=== PATIENT | male | born 1975 | race American Indian/Alaskan Native ===

== ENCOUNTER 2016-09-19 17:50 | Emergency (ER) | payer OTHER ==
[2016-09-19 21:17] VITALS: BP 133/72
--- NOTE | 2016-09-19 21:21 | Emergency Department Report ---
HPI - General Chief Complaint: Skin/Abscess/Foreign Body Time Seen by Provider: 09/19/16 21:00 - HPI HPI: This is a 41-year-old Afro-[place] male who presents to the emergency department with complaint of concern for a retained foreign body and/or sex toy in his rectum. Patient says he was experimenting with a toy yesterday afternoon when part of it broke off. He denies any pain in the abdomen or rectum, rectal bleeding or any physical complaints. However he is convinced that there is still part of the toy retained in his rectum as "it is gone" and cannot be seen in his home. He denies any past medical history. He has not taken anything for symptoms prior to presentation. He did not come in until today because he thought that it would just come out on its own. His only surgical history is an appendectomy a few years ago. ED Past Medical Hx - Past Medical History Previous Medical History?: No - Surgical History Hx Appendectomy: Yes - Medications Home Medications: Home Medications Medication Instructions Recorded Confirmed Last Taken Type No Known Home Medications [No 09/19/16 09/19/16 Unknown History Reported Home Medications] ED Review of Systems ROS: Stated complaint: RECTAL PAIN Other details as noted in HPI Comment: All other systems reviewed and negative Constitutional: denies: chills, fever Eyes: denies: eye pain, eye discharge, vision change ENT: denies: ear pain, throat pain Respiratory: denies: cough, shortness of breath, wheezing Cardiovascular: denies: chest pain, palpitations Gastrointestinal: denies: abdominal pain, nausea, diarrhea Genitourinary: denies: urgency, dysuria Musculoskeletal: denies: back pain, joint swelling, arthralgia Skin: denies: rash, lesions Neurological: denies: headache, weakness, paresthesias Physical Exam - Physical Exam Vital Signs: Vital Signs 09/19/16 09/19/16 18:56 21:17 Temperature 98.6 F 98.5 F Pulse Rate 61 57 L Respiratory 17 24 Rate Blood Pressure 141/66 Blood Pressure 133/72 [Right] O2 Sat by Pulse 99 98 Oximetry Physical Exam: GENERAL: The patient is well-developed well-nourished. HEENT: Normocephalic. Atraumatic. Extraocular motions are intact. Patient has moist mucous membranes. Pupils equal reactive to light bilaterally. NECK: Supple. Trachea is midline. CHEST/LUNGS: Clear to auscultation. There is no respiratory distress noted. HEART/CARDIOVASCULAR: Regular. There is no tachycardia. There is no gallop rub or murmur. ABDOMEN: Abdomen is soft, nontender. Patient has normal bowel sounds. There is no abdominal distention. SKIN: There is no rash. There is no edema. There is no diaphoresis. NEURO: The patient is awake, alert, and oriented. The patient is cooperative. The patient has no focal neurologic deficits. The patient has normal speech and gait. MUSCULOSKELETAL: There is no tenderness or deformity. There is no limitation range of motion. There is no evidence of acute injury. RECTAL: No lesions seen. No foreign body seen. ED Course Vital Signs 09/19/16 09/19/16 18:56 21:17 Temperature 98.6 F 98.5 F Pulse Rate 61 57 L Respiratory 17 24 Rate Blood Pressure 141/66 Blood Pressure 133/72 [Right] O2 Sat by Pulse 99 98 Oximetry ED Medical Decision Making - Radiology Data Radiology results: report reviewed, image reviewed interpreted by me: Abdominal x-ray shows some surgical clips in the lower abdomen and pelvis but otherwise no radiopaque foreign body seen. No obstruction. CT of the abdomen and pelvis without contrast does not show any radiopaque foreign body or any other acute process. - Medical Decision Making 41-year-old male presents with the concern that he has a foreign body or a sex toy in his rectum and/or intestines. On visual examination there is nothing seen in the rectal vault and no lesions and no bleeding. Patient has no complaints of rectal or abdominal pain. Abdominal x-ray did not show any foreign body. Patient was so adamant that there was something in there that a CT was done without contrast. CT also did not show any radiopaque foreign body. Patient will be discharged home to follow-up with his primary care doctor. Critical Care Time: No Critical care attestation.: If time is entered above; I have spent that time in minutes in the direct care of this critically ill patient, excluding procedure time. ED Disposition Clinical Impression: Sensation of foreign body Disposition: DISCHARGED TO HOME OR SELFCARE Is pt being admited?: No Condition: Good Additional Instructions: You were seen today for concern of a possible foreign body in the rectum and/or colon. Nothing was found on abdominal or CT imaging. Please follow-up with your primary care doctor and return to the ER with any acute distress. Referrals: PRIMARY CARE, [Primary Care Provider] - 3-5 Days Time of Disposition: 22:56
--- NOTE | 2016-09-19 22:29 | Cat Scan Report ---
FINAL REPORT EXAM: CT ABDOMEN PELVIS WO CON HISTORY: retained foreign body in rectum / colon TECHNIQUE: Serial axial images through the abdomen and pelvis with coronal and sagittal reconstruction. PRIORS: None. FINDINGS: Lung bases are clear. No pleural effusion is seen. No pneumoperitoneum is identified. The liver, gallbladder, pancreas, spleen and adrenal glands appear within normal limits. Kidneys appear normal. Aorta is normal in caliber. Bladder is decompressed. No free fluid. Surgical clips are seen in the right lower quadrant. No gross bowel abnormality is identified. No radiodense foreign body is identified in the rectal vault. No acute osseous abnormality is identified. IMPRESSION: 1. No radiodense foreign body is identified in the rectal vault. 2. No free fluid or inflammatory changes are seen in the abdomen or pelvis.
--- NOTE | 2016-09-20 07:44 | XRay Report ---
ABDOMEN TWO VIEWS: History: Rectal foreign body, abdominal pain. There is no evidence of free air beneath the diaphragms. The gas pattern within the abdomen is unremarkable. There is no evidence of bowel dilatation, significant air-fluid levels, or masses. The psoas margins are adequately visualized. IMPRESSION: Unremarkable abdomen. No foreign body is detected on x-ray.
== END 2016-09-19 23:15 | disposition home or self-care (01) ==
LOC: ED 17:50
DX: T18.5XXA Foreign body in anus and rectum, initial encounter (principal); W45.8XXA Other foreign body or object entering through skin, initial encounter; Y93.89 Activity, other specified; Y92.89 Other specified places as the place of occurrence of the external cause; Y99.8 Other external cause status; Z90.49 Acquired absence of other specified parts of digestive tract
CPT/HCPCS: 74020; 74176